=== PATIENT | male | born 1960 | race African-American/Black ===

== ENCOUNTER 2024-12-28 10:00 | Day surgery (SDC) | payer OTHER ==
[~2024-12-28] VITALS: Ht 167.6 cm; Wt 82.0 kg
[~2024-12-28 10:00] MED LIST: Avapro150 MG PO; METF500 PO; OMEP20ER PO
[2024-12-28 10:55] VITALS: BP 163/76
--- NOTE | 2024-12-28 12:20 | NUR ---
12/28/[address] SEE ANESTHESIA RECORDS.
[2024-12-28 12:42] VITALS: BP 125/65
[2024-12-28 12:55] VITALS: BP 123/80
--- NOTE | 2024-12-28 13:08 | NUR ---
Patient up to Ambulate independently. Gait steady. Discharge instructions reviewed with patient. Patient verbalizes understanding. Copy given to patient to take home, [facility]. Patient States Post-Procedure ride home has been arranged. Discharged via wheelchair to private car for ride home. PT TOLERATING PO, REPORTS READY TO GO HOME. DR ESPINOZA REPORTS HIS OFFICE WILL CALL PT.
== END 2024-12-28 13:08 | disposition home or self-care (01) ==
LOC: ORSCMMR 10:00 → ORD 11:30 → ORSCMMR 13:08
PROVIDERS: Surgery
PROC: 0DBN8ZX Excision of Sigmoid Colon, Via Natural or Artificial Opening Endoscopic, Diagnostic (ICD-10-PCS; principal; 2024-12-28 11:30)
PROC: 0DBH8ZX Excision of Cecum, Via Natural or Artificial Opening Endoscopic, Diagnostic (ICD-10-PCS; principal; 2024-12-28 11:30)
DX: Z12.11 Encounter for screening for malignant neoplasm of colon (principal); R19.5 Other fecal abnormalities; D12.0 Benign neoplasm of cecum; K63.5 Polyp of colon; K64.1 Second degree hemorrhoids; I10 Essential (primary) hypertension; E11.9 Type 2 diabetes mellitus without complications; K21.9 Gastro-esophageal reflux disease without esophagitis; Z79.84 Long term (current) use of oral hypoglycemic drugs; Z79.899 Other long term (current) drug therapy
CPT/HCPCS: 82947; 88305; J2704; J7120

== ENCOUNTER 2025-01-01 17:27 | Inpatient (IN) | payer OTHER ==
[~2025-01-01] VITALS: Ht 167.6 cm; Wt 80.0 kg
[2025-01-01 18:38] LABS: BASOPHILS ABSOLUTE AUTO 0.04 K/mm3 (0.00-0.23); BASOPHILS PERCENT AUTO 0 % (0-2); EOSINOPHILS ABSOLUTE AUTO 0.29 K/mm3 (0.00-0.68); EOSINOPHILS PERCENT AUTO 2 % (0-6); Hematocrit 40.8 % (37.0-53.0); Hemoglobin 13.5 g/dL (13.5-17.5); IMMATURE GRAN ABSOLUTE AUTO 0.07 K/mm3 (0.00-0.10); IMMATURE GRAN PERCENT AUTO 0 % (0-1); LYMPHOCYTES ABSOLUTE AUTO 3.21 K/mm3 (0.84-5.20); LYMPHOCYTES PERCENT AUTO 19 % (21-46); MONOCYTES ABSOLUTE AUTO 1.06 K/mm3 (0.16-1.47); MONOCYTES PERCENT AUTO 6 % (4-13); Mean Corpuscular HGB Conc 33.1 g/dL (31.5-36.5); Mean Corpuscular Volume 95 fL (80-100); NEUTROPHILS ABSOLUTE AUTO 12.53 K/mm3 (1.96-9.15); NEUTROPHILS PERCENT AUTO 73 % (41-73); NRBC ABSOLUTE 0.00 K/mm3 (0.00-0.02); NRBC Auto 0.0 /100 WBC (0.0-0.2); Platelet Count 230 K/mm3 (150-400); RDW Coefficient Variation 13.2 % (11.7-14.2); RDW Standard Deviation 46.0 fL (35.1-46.3)
[2025-01-01 19:28] LABS: Alanine Aminotransfer (ALT/SGP 47.0 U/L (12-78); Albumin, Blood 4.2 g/dL (3.4-5.0); Albumin/Globulin Ratio 1.2 (0.8-1.8); Anion Gap 9.0 mmol/L (3-11); Aspartate Aminotrans (AST/SGOT 21.0 U/L (12-37); Bilirubin, Total 1.1 mg/dL (0.1-1.0); Blood Urea Nitrogen 10.0 mg/dL (8-24); CO2, Blood 28.0 mmol/L (21-32); Calcium, Blood 9.6 mg/dL (8.5-10.1); Chloride, Blood 106.0 mmol/L (98-108); Creatinine, Blood 0.97 mg/dL (0.60-1.20); Globulin, Blood 3.4 g/dL (2.2-4.0); Glucose, Blood 167.0 mg/dL (70-99); Potassium, Blood 3.6 mmol/L (3.5-5.5); Sodium, Blood 139.0 mmol/L (136-145); Total Protein, Blood 7.6 g/dL (6.4-8.2)
[2025-01-01] MEDS ORDERED: HYDROmorphone HCl/Pf 1MG SYR IV ONE (20:05)
[2025-01-01] MEDS ORDERED: Ondansetron HCl 2 MG / ML 2ML Vial IV ONE (20:05)
[2025-01-01] MEDS ORDERED: Piperacillin/Tazobactam Sod 4.5 GM in NS 100 ML IV ONE (21:50)
[2025-01-01] MEDS ORDERED: HYDROmorphone HCl/Pf 1MG SYR IV PRN (22:30)
[2025-01-01] MEDS ORDERED: Ondansetron HCl 2 MG / ML 2ML Vial IV PRN (22:30)
[2025-01-01] MEDS ORDERED: Naloxone HCl 0.4MG / ML 1ML Vial IV PRN (22:30)
[2025-01-02 00:05] VITALS: BP 156/79
--- NOTE | 2025-01-02 04:14 | NUR ---
SHIFT SUMMARY ESVIN WAS ALERT AND FULLY ORIENTED WHEN HE WAS ADMITTED FROM THE ED THIS SHIFT. PT ABLE TO AMBULATE INDEPENDENTLY. PT PAIN IS MODERATE AND RESPONSIVE TO MEDICATION. PT DENIES N/V/D, SOB, OR CHEST PAIN/PRESSURE. ADMIT COMPLETED. SURGICAL CONSULT PLACED FOR AM. NO ACUTE EVENTS AFTER ARRIVAL.
[2025-01-02 05:01] VITALS: BP 138/86
[2025-01-02 05:16] LABS: BASOPHILS ABSOLUTE AUTO 0.03 K/mm3 (0.00-0.23); BASOPHILS PERCENT AUTO 0 % (0-2); EOSINOPHILS ABSOLUTE AUTO 0.44 K/mm3 (0.00-0.68); EOSINOPHILS PERCENT AUTO 3 % (0-6); Hematocrit 41.4 % (37.0-53.0); Hemoglobin 13.3 g/dL (13.5-17.5); IMMATURE GRAN ABSOLUTE AUTO 0.07 K/mm3 (0.00-0.10); IMMATURE GRAN PERCENT AUTO 1 % (0-1); LYMPHOCYTES ABSOLUTE AUTO 2.86 K/mm3 (0.84-5.20); LYMPHOCYTES PERCENT AUTO 19 % (21-46); MONOCYTES ABSOLUTE AUTO 1.17 K/mm3 (0.16-1.47); MONOCYTES PERCENT AUTO 8 % (4-13); Mean Corpuscular HGB Conc 32.1 g/dL (31.5-36.5); Mean Corpuscular Volume 98 fL (80-100); NEUTROPHILS ABSOLUTE AUTO 10.80 K/mm3 (1.96-9.15); NEUTROPHILS PERCENT AUTO 70 % (41-73); NRBC ABSOLUTE 0.00 K/mm3 (0.00-0.02); NRBC Auto 0.0 /100 WBC (0.0-0.2); Platelet Count 188 K/mm3 (150-400); RDW Coefficient Variation 13.2 % (11.7-14.2); RDW Standard Deviation 47.0 fL (35.1-46.3)
[2025-01-02 05:44] LABS: Magnesium, Blood 1.5 mg/dL (1.6-2.4)
[2025-01-02 05:45] LABS: Alanine Aminotransfer (ALT/SGP 42.0 U/L (12-78); Albumin, Blood 3.6 g/dL (3.4-5.0); Albumin/Globulin Ratio 1.0 (0.8-1.8); Anion Gap 8.0 mmol/L (3-11); Aspartate Aminotrans (AST/SGOT 20.0 U/L (12-37); Bilirubin, Total 1.2 mg/dL (0.1-1.0); Blood Urea Nitrogen 8.0 mg/dL (8-24); CO2, Blood 27.0 mmol/L (21-32); Calcium, Blood 8.7 mg/dL (8.5-10.1); Chloride, Blood 107.0 mmol/L (98-108); Creatinine, Blood 0.89 mg/dL (0.60-1.20); Globulin, Blood 3.6 g/dL (2.2-4.0); Glucose, Blood 136.0 mg/dL (70-99); Potassium, Blood 3.8 mmol/L (3.5-5.5); Sodium, Blood 138.0 mmol/L (136-145); Total Protein, Blood 7.2 g/dL (6.4-8.2)
[2025-01-02] MEDS ORDERED: Piperacillin/Tazobactam Sod 4.5 GM in NS 100 ML IV SCH (06:00)
[2025-01-02 07:05] VITALS: BP 136/72
[2025-01-02] MEDS ORDERED: Mag Sulfate 1 GM/D5% 100ML 100 ML IV STA (08:55)
[2025-01-02] MEDS ORDERED: Lactobacil 2-S.Thermo-Bifido 1 1 Cap PO SCH (09:00)
[2025-01-02 14:26] VITALS: BP 143/70
--- NOTE | 2025-01-02 19:34 | NUR ---
PT HAS BEEN STABLE THIS SHIFT. PAIN IS CONTROLLED WITH PRN DILAUDID. NO NAUSEA. STARTING TO PASS OCCASIONAL FLATUS. NO BM. CONT NPO. FLUIDS ORDERED. CONT ZOSYN. NO NAUSEA. APPETITE RETURNING. PT INDEP TO MOBILIZE IN HALLWAYS. CALLS APPROPRIATELY NEEDED.
[2025-01-02 19:44] VITALS: BP 161/83
--- NOTE | 2025-01-03 04:26 | NUR ---
SHIFT SUMMARY VSS. PT SLEPT ON AND OFF T/O THE NIGHT. REMAINED NPO. DENIES ANY N/V T/O THE NIGHT. MEDICATED FOR PAIN WITH IV DILAUDID W/ GOOD RESULTS. PT ALSO UTILIZING A K PAD W/ RELIEF. PT AMBUALTING TO THE BATHROOM TO VOID, HE ENDORSES ONGOING URINARY URGENCY R/T INGUINAL HERNIA. DENIES PAIN, OR BURNING W/ VOIDING. PT REPORTS PASSING FLATTUS WITH TREMENDOUS RELIEF, BUT NO BM YET. OVERALL, NO ACUTE EVENTS NOTED. PLAN TO CONTINUE CARE PER PROVIDER. THE PATIENT IS CURRENTLY SLEEPING, IN NO DISTRESS, CALL LIGHT IN REACH
[2025-01-03 05:19] VITALS: BP 137/81
[2025-01-03 05:54] LABS: BASOPHILS ABSOLUTE AUTO 0.03 K/mm3 (0.00-0.23); BASOPHILS PERCENT AUTO 0 % (0-2); EOSINOPHILS ABSOLUTE AUTO 0.47 K/mm3 (0.00-0.68); EOSINOPHILS PERCENT AUTO 3 % (0-6); Hematocrit 39.0 % (37.0-53.0); Hemoglobin 13.0 g/dL (13.5-17.5); IMMATURE GRAN ABSOLUTE AUTO 0.05 K/mm3 (0.00-0.10); IMMATURE GRAN PERCENT AUTO 0 % (0-1); LYMPHOCYTES ABSOLUTE AUTO 2.28 K/mm3 (0.84-5.20); LYMPHOCYTES PERCENT AUTO 17 % (21-46); MONOCYTES ABSOLUTE AUTO 0.93 K/mm3 (0.16-1.47); MONOCYTES PERCENT AUTO 7 % (4-13); Mean Corpuscular HGB Conc 33.3 g/dL (31.5-36.5); Mean Corpuscular Volume 95 fL (80-100); NEUTROPHILS ABSOLUTE AUTO 9.88 K/mm3 (1.96-9.15); NEUTROPHILS PERCENT AUTO 73 % (41-73); NRBC ABSOLUTE 0.00 K/mm3 (0.00-0.02); NRBC Auto 0.0 /100 WBC (0.0-0.2); Platelet Count 195 K/mm3 (150-400); RDW Coefficient Variation 13.1 % (11.7-14.2); RDW Standard Deviation 45.2 fL (35.1-46.3)
[2025-01-03 06:19] LABS: Anion Gap 10.0 mmol/L (3-11); Blood Urea Nitrogen 8.0 mg/dL (8-24); CO2, Blood 26.0 mmol/L (21-32); Calcium, Blood 8.5 mg/dL (8.5-10.1); Chloride, Blood 104.0 mmol/L (98-108); Creatinine, Blood 0.94 mg/dL (0.60-1.20); Glucose, Blood 107.0 mg/dL (70-99); Potassium, Blood 3.8 mmol/L (3.5-5.5); Sodium, Blood 136.0 mmol/L (136-145)
[2025-01-03] MEDS ORDERED: D5W-1/2NS 1,000 ML IV SCH (06:45)
[2025-01-03 07:31] VITALS: BP 109/81
[2025-01-03] MEDS ORDERED: Enoxaparin 40 MG/0.4 ML SYR SC SCH (13:00)
[2025-01-03 14:47] VITALS: BP 129/91
--- NOTE | 2025-01-03 18:25 | NUR ---
PT HAS BEEN STABLE THIS SHIFT. CONT TO HAVE LOWER ABD PAIN THAT IS MANAGED WITH PRN DILAUDID. PT HAS NO NAUSEA OR EMESIS. PT TOLERATING CLEARS. OCCASIONAL FLATUS. ENCOURAGED AMBULATION IN HALLWAYS. PT VOIDING WELL. CONT FLUIDS ORDERED. PT BLOOD SUGARS STABLE. NO COVERAGE ORDERED. PT CALLS APPROPRIATELY NEEDED.
[2025-01-03 19:47] VITALS: BP 162/75
[2025-01-04 05:32] VITALS: BP 158/86
[2025-01-04 06:00] LABS: BASOPHILS ABSOLUTE AUTO 0.02 K/mm3 (0.00-0.23); BASOPHILS PERCENT AUTO 0 % (0-2); EOSINOPHILS ABSOLUTE AUTO 0.51 K/mm3 (0.00-0.68); EOSINOPHILS PERCENT AUTO 6 % (0-6); Hematocrit 37.7 % (37.0-53.0); Hemoglobin 12.1 g/dL (13.5-17.5); IMMATURE GRAN ABSOLUTE AUTO 0.02 K/mm3 (0.00-0.10); IMMATURE GRAN PERCENT AUTO 0 % (0-1); LYMPHOCYTES ABSOLUTE AUTO 1.88 K/mm3 (0.84-5.20); LYMPHOCYTES PERCENT AUTO 21 % (21-46); MONOCYTES ABSOLUTE AUTO 0.78 K/mm3 (0.16-1.47); MONOCYTES PERCENT AUTO 9 % (4-13); Mean Corpuscular HGB Conc 32.1 g/dL (31.5-36.5); Mean Corpuscular Volume 96 fL (80-100); NEUTROPHILS ABSOLUTE AUTO 5.77 K/mm3 (1.96-9.15); NEUTROPHILS PERCENT AUTO 64 % (41-73); NRBC ABSOLUTE 0.00 K/mm3 (0.00-0.02); NRBC Auto 0.0 /100 WBC (0.0-0.2); Platelet Count 240 K/mm3 (150-400); RDW Coefficient Variation 13.1 % (11.7-14.2); RDW Standard Deviation 46.5 fL (35.1-46.3)
[2025-01-04 06:23] LABS: Anion Gap 8.0 mmol/L (3-11); Blood Urea Nitrogen 5.0 mg/dL (8-24); CO2, Blood 28.0 mmol/L (21-32); Calcium, Blood 8.5 mg/dL (8.5-10.1); Chloride, Blood 107.0 mmol/L (98-108); Creatinine, Blood 0.91 mg/dL (0.60-1.20); Glucose, Blood 161.0 mg/dL (70-99); Potassium, Blood 4.1 mmol/L (3.5-5.5); Sodium, Blood 139.0 mmol/L (136-145)
--- NOTE | 2025-01-04 07:47 | NUR ---
SUMMARY PT REPORTS PASSED SMALL FORMED BM THIS AM.VERB HE FLUSHED TOILET,DISCUSSED NEED TO SAVE FOR VIEW OF STAFF FOR DOCUMENTATION,PT AGREES TO THIS IN FUTURE.PT VERB DILAUDID 1 MG EFFECTIVE FOR PAIN CONTROL.
[2025-01-04 08:18] VITALS: BP 150/77
--- NOTE | 2025-01-04 09:55 | NUR ---
DR ESPINOZA TO BEDSIDE TO ASSESS PT. VERBAL ORDER GIVEN TO ADVANCE DIET TO LOW FIBER. DR CAPELLAN CONCERS R/T PT PAIN.
--- NOTE | 2025-01-04 12:57 | NUR ---
DR SIMPSON TO ASSESS PT PT STATES "I WANT TO GO HOME TODAY. I ATE MY FOOD." ENCOURAGES PT TO STAY ANOTHER NIGHT
[2025-01-04] MEDS ORDERED: Acetaminophen650 M1 PO (15:38)
[2025-01-04] MEDS ORDERED: DOCU100 PO (15:39)
[2025-01-04] MEDS ORDERED: VISBIOME 112.51 EACH PO (15:40)
[2025-01-04] MEDS ORDERED: AMOCLA875 PO (15:41)
--- NOTE | 2025-01-04 16:07 | NUR ---
discharge pt ambulated out on his own. all instructions gone over with patient and significant other. pt reports feeling much better and was eager to go home and see his dog. all questions answered.
== END 2025-01-04 16:06 | disposition home or self-care (01) | DRG 872 ==
LOC: ER 17:27 → SURS 22:26
PROVIDERS: Internal Medicine; Student in an Organized Health Care Education/Training Program; ADMIT Student in an Organized Health Care Education/Training Program
DX: A41.9 Sepsis, unspecified organism (principal); K57.20 Diverticulitis of large intestine with perforation and abscess without bleeding; I10 Essential (primary) hypertension; K21.9 Gastro-esophageal reflux disease without esophagitis; D64.9 Anemia, unspecified; E11.65 Type 2 diabetes mellitus with hyperglycemia; E83.42 Hypomagnesemia; K42.9 Umbilical hernia without obstruction or gangrene; K40.20 Bilateral inguinal hernia, without obstruction or gangrene, not specified as recurrent; E66.9 Obesity, unspecified; Z79.84 Long term (current) use of oral hypoglycemic drugs; Z87.891 Personal history of nicotine dependence; Z68.29 Body mass index [BMI] 29.0-29.9, adult
CPT/HCPCS: 36415; 74177; 80048; 80053; 82947; 83605; 83690; 83735; 85025; 87040; 96374-59; 96375; 99285-25; A9270; J1171; J1650; J2405; J2543; J3475; J7042; J7120; Q9967

== ENCOUNTER 2025-01-22 09:34 | Inpatient (IN) | payer OTHER ==
[~2025-01-22] VITALS: Ht 167.6 cm; Wt 79.4 kg
[~2025-01-22 09:34] MED LIST changes: +AMOCLA875 PO; +Acetaminophen650 M1 PO; +DOCU100 PO; +VISBIOME 112.51 EACH PO
[2025-01-22 09:58] LABS: BASOPHILS ABSOLUTE AUTO 0.08 K/mm3 (0.00-0.23); BASOPHILS PERCENT AUTO 1 % (0-2); EOSINOPHILS ABSOLUTE AUTO 0.53 K/mm3 (0.00-0.68); EOSINOPHILS PERCENT AUTO 4 % (0-6); Hematocrit 41.0 % (37.0-53.0); Hemoglobin 13.0 g/dL (13.5-17.5); IMMATURE GRAN ABSOLUTE AUTO 0.09 K/mm3 (0.00-0.10); IMMATURE GRAN PERCENT AUTO 1 % (0-1); LYMPHOCYTES ABSOLUTE AUTO 5.85 K/mm3 (0.84-5.20); LYMPHOCYTES PERCENT AUTO 40 % (21-46); MONOCYTES ABSOLUTE AUTO 1.21 K/mm3 (0.16-1.47); MONOCYTES PERCENT AUTO 8 % (4-13); Mean Corpuscular HGB Conc 31.7 g/dL (31.5-36.5); Mean Corpuscular Volume 93 fL (80-100); NEUTROPHILS ABSOLUTE AUTO 6.91 K/mm3 (1.96-9.15); NEUTROPHILS PERCENT AUTO 47 % (41-73); NRBC ABSOLUTE 0.00 K/mm3 (0.00-0.02); NRBC Auto 0.0 /100 WBC (0.0-0.2); Platelet Count 434 K/mm3 (150-400); RDW Coefficient Variation 12.7 % (11.7-14.2); RDW Standard Deviation 43.8 fL (35.1-46.3)
[2025-01-22 10:24] LABS: Alanine Aminotransfer (ALT/SGP 50.0 U/L (12-78); Albumin, Blood 3.5 g/dL (3.4-5.0); Albumin/Globulin Ratio 0.8 (0.8-1.8); Anion Gap 8.0 mmol/L (3-11); Aspartate Aminotrans (AST/SGOT 30.0 U/L (12-37); Bilirubin, Total 0.4 mg/dL (0.1-1.0); Blood Urea Nitrogen 14.0 mg/dL (8-24); CO2, Blood 27.0 mmol/L (21-32); Calcium, Blood 9.8 mg/dL (8.5-10.1); Chloride, Blood 104.0 mmol/L (98-108); Creatinine, Blood 0.79 mg/dL (0.60-1.20); Globulin, Blood 4.4 g/dL (2.2-4.0); Glucose, Blood 138.0 mg/dL (70-99); Potassium, Blood 4.6 mmol/L (3.5-5.5); Sodium, Blood 134.0 mmol/L (136-145); Total Protein, Blood 7.9 g/dL (6.4-8.2)
[2025-01-22] MEDS ORDERED: Ampicillin Sod/Sulbactam Sod 3 GM in NS 100 ML IV ONE (11:10)
[2025-01-22] MEDS ORDERED: MetroNIDAZOLE 500MG/NS 100 ml 100 ML IV ONE (11:10)
[2025-01-22] MEDS ORDERED: Morphine Sulfate 4 MG/1 ML Injection IV PRN (12:35)
[2025-01-22 14:52] VITALS: BP 162/60
[2025-01-22] MEDS ORDERED: NAPR220 PO (15:09)
--- NOTE | 2025-01-22 16:27 | NUR ---
ADMIT: REPORT RECEIVED FROM OUTSIDE SALES. PT A/O, VSS ON ARRIVAL TO UNIT. AMBULATORY IN ROOM. MEDICATED FOR PAIN, CALL LIGHT IN REACH
[2025-01-22] MEDS ORDERED: HydrALAZINE HCl 20 MG / ML 1ML Vial IV PRN (17:20)
[2025-01-22 17:55] VITALS: BP 148/72
[2025-01-22] MEDS ORDERED: Piperacillin/Tazobactam Sod 3.375 GM in NS 100 ML IV SCH (18:00)
[2025-01-22 19:40] VITALS: BP 130/96
[2025-01-22] MEDS ORDERED: NS 250 ML IV PRN (21:45)
[2025-01-22] MEDS ORDERED: FentaNYL Citrate 50 MCG/ML 2 ML Injection IV PRN (22:20)
[2025-01-23] VITALS (9 sets, daily range): BP systolic 150–180; BP diastolic 75–93
--- NOTE | 2025-01-23 04:40 | NUR ---
SHIFT SUMMARY NOC PT A/O X 4. PLEASANT AND COOPERATIVE WITH CARE. VSS. Q6H CBG 107 AND THIS AM. PT NPO FOR POSSIBLE INTERVENTION. PT HAS LR INFUSING @ 100 ML/HR, AND PAIN AND IV ABX BEING MANAGED PER EMAR. PT HAD C/O OF IV MORPHINE NOT CONTROLLING PAIN ADEQUETLY, SO HOSPITALIST NOTIFIED AND MORPHINE D/C AND FENTANYL ORDERED AND PT STATED THAT IT LASTED LONGER AND HELPED THE PAIN MORE. PT CURRENTLY RESTING WITH BED IN LOWEST POSITION, AND CALL LIGHT WITHIN REACH.
[2025-01-23 05:26] LABS: BASOPHILS ABSOLUTE AUTO 0.06 K/mm3 (0.00-0.23); BASOPHILS PERCENT AUTO 1 % (0-2); EOSINOPHILS ABSOLUTE AUTO 0.38 K/mm3 (0.00-0.68); EOSINOPHILS PERCENT AUTO 3 % (0-6); Hematocrit 38.3 % (37.0-53.0); Hemoglobin 12.1 g/dL (13.5-17.5); IMMATURE GRAN ABSOLUTE AUTO 0.06 K/mm3 (0.00-0.10); IMMATURE GRAN PERCENT AUTO 1 % (0-1); LYMPHOCYTES ABSOLUTE AUTO 2.72 K/mm3 (0.84-5.20); LYMPHOCYTES PERCENT AUTO 24 % (21-46); MONOCYTES ABSOLUTE AUTO 0.93 K/mm3 (0.16-1.47); MONOCYTES PERCENT AUTO 8 % (4-13); Mean Corpuscular HGB Conc 31.6 g/dL (31.5-36.5); Mean Corpuscular Volume 94 fL (80-100); NEUTROPHILS ABSOLUTE AUTO 7.17 K/mm3 (1.96-9.15); NEUTROPHILS PERCENT AUTO 63 % (41-73); NRBC ABSOLUTE 0.00 K/mm3 (0.00-0.02); NRBC Auto 0.0 /100 WBC (0.0-0.2); Platelet Count 399 K/mm3 (150-400); RDW Coefficient Variation 12.8 % (11.7-14.2); RDW Standard Deviation 44.2 fL (35.1-46.3)
[2025-01-23 05:46] LABS: Anion Gap 9.0 mmol/L (3-11); Blood Urea Nitrogen 13.0 mg/dL (8-24); CO2, Blood 28.0 mmol/L (21-32); Calcium, Blood 9.2 mg/dL (8.5-10.1); Chloride, Blood 105.0 mmol/L (98-108); Creatinine, Blood 0.99 mg/dL (0.60-1.20); Glucose, Blood 126.0 mg/dL (70-99); Potassium, Blood 4.3 mmol/L (3.5-5.5); Sodium, Blood 138.0 mmol/L (136-145)
--- NOTE | 2025-01-23 05:59 | NUR ---
SHIFT SUMMARY NOC PT A/O X 4. PLEASANT AND COOPERATIVE WITH CARE. VSS. Q6H CBG 107 AND 126 THIS AM. PT NPO FOR POSSIBLE INTERVENTION. PT HAS LR INFUSING @ 100 ML/HR, AND PAIN AND IV ABX BEING MANAGED PER EMAR. PT HAD C/O OF IV MORPHINE NOT CONTROLLING PAIN ADEQUETLY, SO HOSPITALIST NOTIFIED AND MORPHINE D/C AND FENTANYL ORDERED AND PT STATED THAT IT LASTED LONGER AND HELPED THE PAIN MORE. CONTINOUS PULSE OXIMETRY MONITORING IN PLACE.PT CURRENTLY RESTING WITH BED IN LOWEST POSITION, AND CALL LIGHT WITHIN REACH.
[2025-01-23] MEDS ORDERED: Pantoprazole Sodium 40 MG Injection IV SCH (06:00)
--- NOTE | 2025-01-23 17:30 | NUR ---
SHIFT SUMMARY NO ACUTE CHANGES THIS SHIFT. PATIENT ALERT AND ORIENTED X4. COMMUNICATES NEEDS EFFECTIVELY. DIVERTICULITIS W/ PELVIC ABSCESS. MANAGING PAIN PER EMAR W/ REPORTED RELIEF. ABD SOFT, TENDER W/ ACTIVE BOWEL TONES. PASSING FLATUS. DIET ADVANCED TO CLEAR LIQUIDS - REPORTING INCREASED ABD PAIN W/ INTAKE. IVF INFUSING PER EMAR. IV ABX ADMINISTERED PER EMAR. ON ROOM AIR - SATs >90%. DENIES SOB. CONTINOUS PULSE OX AT BEDSIDE. HTN NOTED THIS AFTERNOON - PRN IV HYDRALAZINE ADMINISTERED PER EMAR FOR SBP >160. DENIES CHEST PAIN, PRESSURE. AMBULATING INDEPENDENTLY IN ROOM. VOIDING. CALL LIGHT IN REACH.
--- NOTE | 2025-01-24 04:03 | NUR ---
SHIFT SUMMARY NOC PT A/O X 4. PLEASANT AND COOPERATIVE WITH CARE. PT HAD INCREASED C/O OF MID ABD PAIN FROM HERNIA PRESSING ON SIGMOID DIVERTICULITIS PERFORMATION ULCER, AND REQUIRED PAIN RX MORE FREQUENTLY THAN PREVIOUS NIGHT. PER DAY RN HAND OFF REPORT, THEY STATED THAT ONCE PT WAS PUT ON NEW CLEAR LIQUID DIET THAT THEY INHALE ANYTHING THAT THEY CONSUME AND THAT THE INCREASED PAIN COINCIDES WITH THIS SHORTLY AFTERWARDS. PT HAS BEEN EDUCATED TO TAKE IS SLOW TO ALLOW BOWELS TIME TO RECOVER, BUT PT CONTINUES TO DO THIS. VSS CHECKED AND BP ELEVATED DURING ONE EPISODE AND GIVEN HYDRALAZINE FOR CORRECTION. LR AND IV ABX INFUSING PER EMAR. PT CURRENTLY RESTING WITH BED IN LOWEST POSITION. AND CALL LIGHT WITHIN REACH.
[2025-01-24 04:13] VITALS: BP 154/81
[2025-01-24 05:17] LABS: BASOPHILS ABSOLUTE AUTO 0.03 K/mm3 (0.00-0.23); BASOPHILS PERCENT AUTO 0 % (0-2); EOSINOPHILS ABSOLUTE AUTO 0.30 K/mm3 (0.00-0.68); EOSINOPHILS PERCENT AUTO 3 % (0-6); Hematocrit 38.7 % (37.0-53.0); Hemoglobin 12.8 g/dL (13.5-17.5); IMMATURE GRAN ABSOLUTE AUTO 0.06 K/mm3 (0.00-0.10); IMMATURE GRAN PERCENT AUTO 1 % (0-1); LYMPHOCYTES ABSOLUTE AUTO 2.57 K/mm3 (0.84-5.20); LYMPHOCYTES PERCENT AUTO 23 % (21-46); MONOCYTES ABSOLUTE AUTO 0.91 K/mm3 (0.16-1.47); MONOCYTES PERCENT AUTO 8 % (4-13); Mean Corpuscular HGB Conc 33.1 g/dL (31.5-36.5); Mean Corpuscular Volume 92 fL (80-100); NEUTROPHILS ABSOLUTE AUTO 7.29 K/mm3 (1.96-9.15); NEUTROPHILS PERCENT AUTO 65 % (41-73); NRBC ABSOLUTE 0.00 K/mm3 (0.00-0.02); NRBC Auto 0.0 /100 WBC (0.0-0.2); Platelet Count 375 K/mm3 (150-400); RDW Coefficient Variation 12.9 % (11.7-14.2); RDW Standard Deviation 43.5 fL (35.1-46.3)
[2025-01-24 05:43] LABS: Anion Gap 10.0 mmol/L (3-11); Blood Urea Nitrogen 9.0 mg/dL (8-24); CO2, Blood 26.0 mmol/L (21-32); Calcium, Blood 9.1 mg/dL (8.5-10.1); Chloride, Blood 106.0 mmol/L (98-108); Creatinine, Blood 0.81 mg/dL (0.60-1.20); Glucose, Blood 138.0 mg/dL (70-99); Potassium, Blood 4.0 mmol/L (3.5-5.5); Sodium, Blood 138.0 mmol/L (136-145)
[2025-01-24 07:36] VITALS: BP 151/80
[2025-01-24 12:24] VITALS: BP 140/75
[2025-01-24 15:18] VITALS: BP 147/83
--- NOTE | 2025-01-24 18:25 | NUR ---
SHIFT SUMMARY PT ADMITTED FOR DIVERTICULITIS w/ABD ABCESS. A&O x4. NO ACUTE CHANGES THIS SHIFT. REPORTS SOME ABDOMINAL TENDERNESS AND MINIMAL PAIN TODAY. PAIN MEDS SWITCHED FROM IV TO ORAL, TOLERATING WELL. NO NAUSEA. TOLERATING CLEAR LIQUID DIET WELL. ON CONTINOUS PULSE OX, SATS >90. INDEPENDENT IN ROOM, CALL LIGHT WITHIN REACH.
[2025-01-24 19:44] VITALS: BP 169/87
[2025-01-25 03:32] VITALS: BP 156/87
[2025-01-25 04:38] LABS: BASOPHILS ABSOLUTE AUTO 0.04 K/mm3 (0.00-0.23); BASOPHILS PERCENT AUTO 0 % (0-2); EOSINOPHILS ABSOLUTE AUTO 0.38 K/mm3 (0.00-0.68); EOSINOPHILS PERCENT AUTO 4 % (0-6); Hematocrit 39.2 % (37.0-53.0); Hemoglobin 12.7 g/dL (13.5-17.5); IMMATURE GRAN ABSOLUTE AUTO 0.05 K/mm3 (0.00-0.10); IMMATURE GRAN PERCENT AUTO 1 % (0-1); LYMPHOCYTES ABSOLUTE AUTO 3.24 K/mm3 (0.84-5.20); LYMPHOCYTES PERCENT AUTO 33 % (21-46); MONOCYTES ABSOLUTE AUTO 0.80 K/mm3 (0.16-1.47); MONOCYTES PERCENT AUTO 8 % (4-13); Mean Corpuscular HGB Conc 32.4 g/dL (31.5-36.5); Mean Corpuscular Volume 93 fL (80-100); NEUTROPHILS ABSOLUTE AUTO 5.45 K/mm3 (1.96-9.15); NEUTROPHILS PERCENT AUTO 55 % (41-73); NRBC ABSOLUTE 0.00 K/mm3 (0.00-0.02); NRBC Auto 0.0 /100 WBC (0.0-0.2); Platelet Count 361 K/mm3 (150-400); RDW Coefficient Variation 13.1 % (11.7-14.2); RDW Standard Deviation 44.5 fL (35.1-46.3)
[2025-01-25 05:01] LABS: Anion Gap 9.0 mmol/L (3-11); Blood Urea Nitrogen 9.0 mg/dL (8-24); CO2, Blood 24.0 mmol/L (21-32); Calcium, Blood 8.9 mg/dL (8.5-10.1); Chloride, Blood 108.0 mmol/L (98-108); Creatinine, Blood 0.85 mg/dL (0.60-1.20); Glucose, Blood 123.0 mg/dL (70-99); Potassium, Blood 3.9 mmol/L (3.5-5.5); Sodium, Blood 137.0 mmol/L (136-145)
[2025-01-25 07:38] VITALS: BP 144/78
[2025-01-25 15:05] VITALS: BP 152/89
--- NOTE | 2025-01-25 17:11 | NUR ---
SUMMARY NO ACUTE CHANGES TO SHIFT. PT REPORTED IMPROVEMENT IN ABDOMINAL PAIN. DID REPORT SOME NAUSEA AFTER LUNCH THAT RESOLVED WITHOUT INTERVENTION. PT AMBULATED INDEPENDENTLY IN [place]. NOW RESTING IN BED, CALL LIGHT IN REACH.
[2025-01-25 18:45] VITALS: BP 135/83
[2025-01-26 03:25] VITALS: BP 136/71
[2025-01-26 05:57] LABS: BASOPHILS ABSOLUTE AUTO 0.04 K/mm3 (0.00-0.23); BASOPHILS PERCENT AUTO 0 % (0-2); EOSINOPHILS ABSOLUTE AUTO 0.43 K/mm3 (0.00-0.68); EOSINOPHILS PERCENT AUTO 4 % (0-6); Hematocrit 39.1 % (37.0-53.0); Hemoglobin 12.5 g/dL (13.5-17.5); IMMATURE GRAN ABSOLUTE AUTO 0.04 K/mm3 (0.00-0.10); IMMATURE GRAN PERCENT AUTO 0 % (0-1); LYMPHOCYTES ABSOLUTE AUTO 3.26 K/mm3 (0.84-5.20); LYMPHOCYTES PERCENT AUTO 34 % (21-46); MONOCYTES ABSOLUTE AUTO 0.73 K/mm3 (0.16-1.47); MONOCYTES PERCENT AUTO 8 % (4-13); Mean Corpuscular HGB Conc 32.0 g/dL (31.5-36.5); Mean Corpuscular Volume 94 fL (80-100); NEUTROPHILS ABSOLUTE AUTO 5.23 K/mm3 (1.96-9.15); NEUTROPHILS PERCENT AUTO 54 % (41-73); NRBC ABSOLUTE 0.00 K/mm3 (0.00-0.02); NRBC Auto 0.0 /100 WBC (0.0-0.2); Platelet Count 353 K/mm3 (150-400); RDW Coefficient Variation 13.0 % (11.7-14.2); RDW Standard Deviation 44.4 fL (35.1-46.3)
--- NOTE | 2025-01-26 06:35 | NUR ---
NOC SUMMARY- PAIN HAS BEEN MANAGED WELL W/ PO PAIN MEDS. PT HAS BEEN RESTING WELL. PT TOLERATING PO. PT VOIDING AND PASSING GAS. PT AMBULATORY TO BATHROOM.
[2025-01-26 06:38] LABS: Anion Gap 7.0 mmol/L (3-11); Blood Urea Nitrogen 11.0 mg/dL (8-24); CO2, Blood 29.0 mmol/L (21-32); Calcium, Blood 9.2 mg/dL (8.5-10.1); Chloride, Blood 106.0 mmol/L (98-108); Creatinine, Blood 0.98 mg/dL (0.60-1.20); Glucose, Blood 126.0 mg/dL (70-99); Potassium, Blood 4.2 mmol/L (3.5-5.5); Sodium, Blood 138.0 mmol/L (136-145)
[2025-01-26 07:33] VITALS: BP 143/78
[2025-01-26 14:51] VITALS: BP 137/72
--- NOTE | 2025-01-26 17:00 | NUR ---
SUMMARY NO ACUTE CHANGES THIS SHIFT. PT HAD CT THIS AM. HAS SLEPT/RESTED OFF AND ON T/O AFTERNOON. TOLERATING DIET. RECEIVING ABX PER ORDERS. INDEPENDENT IN ROOM. CALL LIGHT IN REACH.
[2025-01-26 19:40] VITALS: BP 132/72
[2025-01-27 05:01] LABS: BASOPHILS ABSOLUTE AUTO 0.04 K/mm3 (0.00-0.23); BASOPHILS PERCENT AUTO 0 % (0-2); EOSINOPHILS ABSOLUTE AUTO 0.40 K/mm3 (0.00-0.68); EOSINOPHILS PERCENT AUTO 4 % (0-6); Hematocrit 39.4 % (37.0-53.0); Hemoglobin 12.8 g/dL (13.5-17.5); IMMATURE GRAN ABSOLUTE AUTO 0.03 K/mm3 (0.00-0.10); IMMATURE GRAN PERCENT AUTO 0 % (0-1); LYMPHOCYTES ABSOLUTE AUTO 3.26 K/mm3 (0.84-5.20); LYMPHOCYTES PERCENT AUTO 32 % (21-46); MONOCYTES ABSOLUTE AUTO 0.73 K/mm3 (0.16-1.47); MONOCYTES PERCENT AUTO 7 % (4-13); Mean Corpuscular HGB Conc 32.5 g/dL (31.5-36.5); Mean Corpuscular Volume 93 fL (80-100); NEUTROPHILS ABSOLUTE AUTO 5.72 K/mm3 (1.96-9.15); NEUTROPHILS PERCENT AUTO 56 % (41-73); NRBC ABSOLUTE 0.00 K/mm3 (0.00-0.02); NRBC Auto 0.0 /100 WBC (0.0-0.2); Platelet Count 326 K/mm3 (150-400); RDW Coefficient Variation 13.1 % (11.7-14.2); RDW Standard Deviation 44.4 fL (35.1-46.3)
[2025-01-27 05:09] VITALS: BP 160/85
--- NOTE | 2025-01-27 05:11 | NUR ---
SHIFT SUMMARY NO ACUTE CHANGES T/O SHIFT. PT A/OX4 WITH VSS. IS IND IN ROOM. ABX INFUSED PER ORDERS. TOLERATING REGULAR DIET, DENIES N/V/D. IS CURRENTLY RESTING IN BED WITH EYES CLOSED, RESP EVEN/UNLABORED AND CALL LIGHT IN REACH. WILL GIVE REPORT TO ONCOMING RN.
[2025-01-27 05:24] LABS: Anion Gap 10.0 mmol/L (3-11); Blood Urea Nitrogen 13.0 mg/dL (8-24); CO2, Blood 27.0 mmol/L (21-32); Calcium, Blood 9.7 mg/dL (8.5-10.1); Chloride, Blood 105.0 mmol/L (98-108); Creatinine, Blood 1.03 mg/dL (0.60-1.20); Glucose, Blood 116.0 mg/dL (70-99); Potassium, Blood 4.0 mmol/L (3.5-5.5); Sodium, Blood 138.0 mmol/L (136-145)
[2025-01-27 07:02] VITALS: BP 137/81
[2025-01-27] MEDS ORDERED: AMLO5 PO (09:56)
[2025-01-27] MEDS ORDERED: TRAM50 PO (09:57)
[2025-01-27] MEDS ORDERED: AMOCLA875 PO (09:57)
--- NOTE | 2025-01-27 11:15 | NUR ---
DISCHARGE SUMMARY ADMITTED ON 01/22 FOR ABD MASS & DIVERTICULITIS. A&O x/4, VSS. INDEPENDENT IN ROOM. TOLERATING REGULAR DIET WELL. MINIMAL ABD TENDERNESS. PASSING GAS & BM'S. DISCHARGE INSTRUCTIONS REVIEWED & GIVEN, VERBALIZED UNDERSTANDING. WRITTEN PERSCRIPTION SENT. DECLINED OFFER FOR WC TO VEHICLE. ESCORTED OUT BY SIGNIFANT OTHER.
== END 2025-01-27 10:15 | disposition home or self-care (01) | DRG 871 ==
LOC: ER 09:34 → SURS 12:29
PROVIDERS: Internal Medicine; Student in an Organized Health Care Education/Training Program; ADMIT Family Medicine
DX: A41.9 Sepsis, unspecified organism (principal); K65.1 Peritoneal abscess; E87.1 Hypo-osmolality and hyponatremia; K57.20 Diverticulitis of large intestine with perforation and abscess without bleeding; I10 Essential (primary) hypertension; K21.9 Gastro-esophageal reflux disease without esophagitis; E11.9 Type 2 diabetes mellitus without complications; D64.9 Anemia, unspecified; D75.839 Thrombocytosis, unspecified; Z90.89 Acquired absence of other organs; Z98.890 Other specified postprocedural states; Z79.84 Long term (current) use of oral hypoglycemic drugs; Z79.899 Other long term (current) drug therapy
CPT/HCPCS: 36415; 74177; 80048; 80053; 82947; 83605; 85025; 94762; 99284; A9270; J0295; J0360; J2270; J2470; J2543; J3010; J7050; J7120; Q9967